=== PATIENT | female | born 1975 | race African-American/Black ===

== ENCOUNTER 2017-06-26 04:56 | Inpatient (IN) | payer MEDICAID ==
[~2017-06-26] VITALS: Ht 160 cm; Wt 58.3 kg
[2017-06-26 06:08] LABS: BASOPHIL % 0.3 % (0-2); PLATELET COUNT 184 x10^3mcL (130-400); RED CELL DISTRIBUTION WIDTH 13.5 % (11.5-14.5)
[2017-06-26 06:25] LABS: CALCIUM 8.4 mg/dL (8.5-10.1); CARBON DIOXIDE 22.4 mmol/L (21-32); CHLORIDE SERUM 100 mmol/L (98-107); CREATININE SERUM 0.9 mg/dL (0.6-1.0); GFR1 > 60 mL/min; GLUCOSE SERUM 223 mg/dL (74-106); POTASSIUM SERUM 3.2 mmol/L (3.5-5.1); SODIUM SERUM 137 mmol/L (136-145)
[2017-06-26 06:48] LABS: ALBUMIN 3.6 g/dL (3.4-5.0); ALKALINE PHOSPHATASE 71 U/L (46-116); ALT/SGPT 23 U/L (14-59); AST/SGOT 18 U/L (15-37); BILIRUBIN TOTAL 0.3 mg/dL (0.20-1.00); TOTAL PROTEIN, SERUM 7.9 g/dL (6.4-8.2)
[2017-06-26 08:11] LABS: AMPHETAMINE QUAL UR NONE DETECTED (NEG <=1000)
[2017-06-26] MEDS ORDERED: CITALOPRAM HYDR20 M1 PO (08:25)
[2017-06-26] MEDS ORDERED: RISPERIDONE1 MG PO (08:26)
[2017-06-26 11:04] LABS: MAGNESIUM 1.6 mg/dL (1.8-2.4); PHOSPHOROUS 3.6 mg/dL (2.5-4.9)
[2017-06-26 11:29] LABS: T3 TOTAL 0.68 ng/mL
[2017-06-26 11:31] VITALS: BP 116/69
[2017-06-26 11:36] LABS: FREE T4 0.92 ng/dL (0.76-1.46); FREE THYROXINE INDEX 3.1 ug/dL (1.4-4.5); T4(THYROXINE) 7.7 ug/dL (4.7-13.3)
[2017-06-26 13:53] VITALS: BP 112/74
[2017-06-26 16:23] VITALS: BP 120/74
[2017-06-26 19:06] LABS: microscopic required? NO
[2017-06-26 20:01] LABS: UA SPECIFIC GRAVITY >=1.030 (1.005-1.035); urine erythrocyte NEGATIVE (NEGATIVE)
[2017-06-26 21:00] VITALS: BP 120/73
[2017-06-27 03:31] LABS: PLATELET COUNT 220 x10^3mcL (130-400); RED CELL DISTRIBUTION WIDTH 12.6 % (11.5-14.5)
[2017-06-27 03:51] LABS: CALCIUM 8.3 mg/dL (8.5-10.1); CARBON DIOXIDE 25.9 mmol/L (21-32); CHLORIDE SERUM 105 mmol/L (98-107); CREATININE SERUM 0.6 mg/dL (0.6-1.0); GFR1 > 60 mL/min; GLUCOSE SERUM 104 mg/dL (74-106); MAGNESIUM 2.1 mg/dL (1.8-2.4); POTASSIUM SERUM 3.1 mmol/L (3.5-5.1); SODIUM SERUM 139 mmol/L (136-145)
[2017-06-27 03:57] LABS: BILIRUBIN DIRECT 0.16 mg/dL (0.0-0.2); BILIRUBIN TOTAL 0.6 mg/dL (0.20-1.00); TOTAL PROTEIN, SERUM 6.6 g/dL (6.4-8.2)
[2017-06-27 04:04] LABS: ALBUMIN 2.9 g/dL (3.4-5.0)
[2017-06-27 06:23] VITALS: BP 122/71
[2017-06-27 09:42] VITALS: BP 111/65
[2017-06-27 13:12] LABS: BILIRUBIN DIRECT 0.11 mg/dL (0.0-0.2); BILIRUBIN TOTAL 0.61 mg/dL (0.20-1.00); TOTAL PROTEIN, SERUM 6.8 g/dL (6.4-8.2)
[2017-06-27 13:16] LABS: ALBUMIN 3.2 g/dL (3.4-5.0)
[2017-06-27 16:55] VITALS: BP 102/60
[2017-06-27 20:00] VITALS: BP 104/66
[2017-06-27 21:06] VITALS: BP 112/68
[2017-06-28 06:12] VITALS: BP 105/60
[2017-06-28 07:29] LABS: CALCIUM 8.6 mg/dL (8.5-10.1); CARBON DIOXIDE 27.9 mmol/L (21-32); CHLORIDE SERUM 107 mmol/L (98-107); CREATININE SERUM 0.6 mg/dL (0.6-1.0); GFR1 > 60 mL/min; GLUCOSE SERUM 86 mg/dL (74-106); MAGNESIUM 1.8 mg/dL (1.8-2.4); PHOSPHOROUS 3.5 mg/dL (2.5-4.9); POTASSIUM SERUM 3.9 mmol/L (3.5-5.1); SODIUM SERUM 142 mmol/L (136-145)
[2017-06-28 07:31] LABS: BASOPHIL % 0.4 % (0-2); PLATELET COUNT 154 x10^3mcL (130-400); RED CELL DISTRIBUTION WIDTH 13.5 % (11.5-14.5)
[2017-06-28 09:43] VITALS: BP 109/71
[2017-06-28 11:20] VITALS: BP 109/71
== END 2017-06-28 11:51 | disposition home or self-care (01) | DRG 812 ==
LOC: ED 04:56 → DU 10:15 → MU 06-28 05:44
PROVIDERS: Emergency Medicine; ADMIT Family Medicine Sports Medicine
DX: T39.1X2A Poisoning by 4-Aminophenol derivatives, intentional self-harm, initial encounter (principal); G92 Toxic encephalopathy; F33.2 Major depressive disorder, recurrent severe without psychotic features; E87.2 Acidosis; K72.90 Hepatic failure, unspecified without coma; E44.1 Mild protein-calorie malnutrition; E83.42 Hypomagnesemia; E87.6 Hypokalemia; E78.5 Hyperlipidemia, unspecified; F40.10 Social phobia, unspecified; Y92.018 Other place in single-family (private) house as the place of occurrence of the external cause; Z68.22 Body mass index [BMI] 22.0-22.9, adult
CPT/HCPCS: 83880; 84439; G0480; J0132; J1200; J2405; J2765; J3475; Q0092